=== PATIENT | female | born 1960 | race Caucasian/White ===

== ENCOUNTER → 2017-03-05 | Outpatient (CLI) | payer BC ==
--- NOTE | 2017-03-05 15:09 | RAD ---
DATE: 03/05/2017 EXAM: DIGITAL SCREEN BILAT W/CAD HISTORY: Screening study. COMPARISON: 03/04/2016 This study was interpreted with the benefit of Computerized Aided Detection (CAD). FINDINGS: Digital MLO and CC mammograms of both breasts were obtained. Comparison study is dated 03/04/2016. The breast parenchyma is composed of scattered fibroglandular densities which can obscure a lesion on mammography (breast density code B).. Benign-appearing calcifications are seen within both breasts. No spiculated mass is seen. No malignant appearing calcification or area of architectural distortion is noted. IMPRESSION: BI-RADS Category 1, negative. There is no mammographic evidence of malignancy. Routine yearly screening mammography is recommended for follow-up. BI-RADS CATEGORY: 1 NEGATIVE RECOMMENDED FOLLOW-UP: 12M 12 MONTH FOLLOW-UP PQRS compliance statement: Patient information was entered into a reminder system with a target due date 03/05/2018 for the next mammogram. Mammography is a sensitive method for finding small breast cancers, but it does not detect them all and is not a substitute for careful clinical examination. A negative mammogram does not negate a clinically suspicious finding and should not result in delay in biopsying a clinically suspicious abnormality. "Our facility is accredited by the [employer] Mammography [employer]."
== END | disposition home or self-care (01) ==
LOC: MAMMO 09:03
PROVIDERS: ATTEND Physician Assistant Medical
DX: Z12.31 Encounter for screening mammogram for malignant neoplasm of breast (principal)
CPT/HCPCS: G0202; 77067

== ENCOUNTER → 2018-03-06 | Outpatient (CLI) | payer BC ==
--- NOTE | 2018-03-06 14:03 | RAD ---
DATE: 03/06/2018 EXAM: MAMMO COCO SCREENING BILATERAL HISTORY: Routine screening COMPARISON: 03/05/2017 This study was interpreted with the benefit of Computerized Aided Detection (CAD). The breast parenchyma shows scattered fibroglandular densities. Breast parenchyma level B. FINDINGS: 2-D and 3-D tomosynthesis imaging was performed in CC and MLO projections. There is an asymmetric density in the upper inner left breast as seen on the cc view which is unchanged since older studies such as 09/08/2013. This is probably related to the history of previous left breast biopsy. There are unchanged small smooth nodules laterally in the right breast. No new or enlarging breast densities are seen. Several benign type calcifications are again noted. No suspicious microcalcifications have developed. IMPRESSION: Stable mammograms without evidence of malignancy. BI-RADS CATEGORY: 2 BENIGN FINDING(S) RECOMMENDED FOLLOW-UP: 12M 12 MONTH FOLLOW-UP PQRS compliance statement: Patient information was entered into a reminder system with a target due date for the next mammogram. Mammography is a sensitive method for finding small breast cancers, but it does not detect them all and is not a substitute for careful clinical examination. A negative mammogram does not negate a clinically suspicious finding and should not result in delay in biopsying a clinically suspicious abnormality. "Our facility is accredited by the [employer] Mammography [employer]."
== END | disposition home or self-care (01) ==
LOC: MAMMO 09:22
PROVIDERS: ATTEND Physician Assistant Medical
DX: Z12.31 Encounter for screening mammogram for malignant neoplasm of breast (principal)
CPT/HCPCS: 77063; 77067

== ENCOUNTER → 2018-12-02 | Outpatient (CLI) | payer BC ==
--- NOTE | 2018-12-02 14:38 | RAD ---
EXAM: Pelvic sonogram. HISTORY: Postmenopausal bleeding. TECHNIQUE: Transabdominal and transvaginal sonographic imaging of the pelvis was performed. COMPARISON: None. FINDINGS: The uterus measures 7.1 x 4.6 x 3.2 cm. The endometrial stripe measures 2.3 mm transvaginally. The ovaries are normal in size and demonstrate normal blood flow. There is a small uterine fibroid measuring 1.8 cm in maximum dimension. There is no pelvic free fluid. IMPRESSION: 1. Small uterine fibroid. 2. Endometrial stripe within normal limits for the postmenopausal status of patient. This measures 2.3 mm on transvaginal imaging. 3. Unremarkable ovaries. Electronically signed by: Heather Rush MD (12/02/2018 2:35 PM) [id number]
== END | disposition home or self-care (01) ==
LOC: US 12:43
PROVIDERS: ATTEND Registered Nurse
DX: D25.9 Leiomyoma of uterus, unspecified (principal)
CPT/HCPCS: 76830; 76856

== ENCOUNTER → 2019-03-10 | Outpatient (CLI) | payer BC ==
--- NOTE | 2019-03-10 09:07 | RAD ---
DATE: 03/10/2019 EXAM: MAMMO COCO SCREENING BILATERAL HISTORY: Routine screening COMPARISON: 03/06/2018 This study was interpreted with the benefit of Computerized Aided Detection (CAD). Breast Density: SCATTERED The breast parenchyma shows scattered fibroglandular densities. Breast parenchyma level B. FINDINGS: 2-D and 3-D tomosynthesis imaging was performed in CC and MLO projections. There is an unchanged asymmetric density medially in the left breast which may be related to a previous breast biopsy. There are stable small smooth nodules in the breasts, most numerous laterally on the right. No new or enlarging breast densities are seen. Several benign type calcifications are noted. No suspicious microcalcifications have developed. IMPRESSION: Stable mammograms without evidence of malignancy. BI-RADS CATEGORY: 2 BENIGN FINDING(S) RECOMMENDED FOLLOW-UP: 12M 12 MONTH FOLLOW-UP PQRS compliance statement: Patient information was entered into a reminder system with a target due date for the next mammogram. Mammography is a sensitive method for finding small breast cancers, but it does not detect them all and is not a substitute for careful clinical examination. A negative mammogram does not negate a clinically suspicious finding and should not result in delay in biopsying a clinically suspicious abnormality. "Our facility is accredited by the [employer] Mammography [employer]."
== END | disposition home or self-care (01) ==
LOC: MAMMO 08:01
PROVIDERS: ATTEND Physician Assistant Medical
DX: Z12.31 Encounter for screening mammogram for malignant neoplasm of breast (principal); N63.20 Unspecified lump in the left breast, unspecified quadrant; N63.10 Unspecified lump in the right breast, unspecified quadrant; N64.89 Other specified disorders of breast
CPT/HCPCS: 77063; 77067

== ENCOUNTER → 2020-03-13 | Outpatient (CLI) | payer BC ==
--- NOTE | 2020-03-15 12:55 | RAD ---
DATE: 03/13/2020 9:41 AM EXAM: MAMMO COCO SCREENING BILATERAL HISTORY: Screening COMPARISON: 6 03/10/2019, 03/06/2018 Bilateral CC and MLO views of the breasts were performed. Bilateral breast tomosynthesis was performed in CC and MLO projections. This study was interpreted with the benefit of Computerized Aided Detection (CAD). FINDINGS: Breast Density: FATTY The Breast Parenchyma is primarily fatty replaced. Breast parenchyma level density A. No suspicious masses, microcalcifications or architectural distortion is present to suggest malignancy in either breast. The visualized axillae are unremarkable. IMPRESSION: No mammographic evidence of malignancy. BI-RADS CATEGORY: 1 NEGATIVE RECOMMENDED FOLLOW-UP: 12M 12 MONTH FOLLOW-UP Annual screening mammography is recommended, unless clinically indicated sooner based on symptoms or change in physical exam. PQRS compliance statement: Patient information was entered into a reminder system with a target due date 03/14/2021 for the next mammogram. Mammography is a sensitive method for finding small breast cancers, but it does not detect them all and is not a substitute for careful clinical examination. A negative mammogram does not negate a clinically suspicious finding and should not result in delay in biopsying a clinically suspicious abnormality. "Our facility is accredited by the [employer] Mammography [employer]."
== END | disposition home or self-care (01) ==
LOC: MAMMO 08:41
PROVIDERS: ATTEND Physician Assistant Medical
DX: Z12.31 Encounter for screening mammogram for malignant neoplasm of breast (principal)
CPT/HCPCS: 77063; 77067

== ENCOUNTER → 2021-03-20 | Outpatient (CLI) | payer OTHER ==
--- NOTE | 2021-03-20 16:17 | RAD ---
EXAM: BILATERAL DIGITAL 3D SCREENING MAMMOGRAPHY. HISTORY: Routine mammographic screening. TECHNIQUE: Bilateral digital 3D and tomographic images were obtained in CC and MLO projections. Compu ter-aided detection was applied. COMPARISON: 03/13/2020, 03/10/2019. COMPOSITION: A. The breasts are almost entirely fatty. FINDINGS: Mild architectural distortion superiorly on the left is stable. There are no suspicious mas ses, microcalcifications or architectural distortion. The parenchymal pattern is stable. BI-RADS CATEGORY 2: Benign. RECOMMENDATION: 1. Routine screening mammography in one year. If mammography demonstrates dense breast tissue (heterogenously dense or extremely dense, category C or D), which could hide abnormalities, and if other risk factors for breast cancer have been identifi ed, supplemental screening tests that may be suggested by the ordering physician may be of benefit. D ense breast tissue, in and of itself, is a relatively common condition. Therefore, this information i s not provided to cause undue concern, but rather to raise awareness and to promote discussion with t he referring physician regarding the presence of other risk factors, in addition to dense breast tiss ue. The results of this mammography examination is provided to the patient and referring physician. T he patient should contact their referring physician if any questions or concerns exist regarding this report. PQRS compliance statement - Patient information was entered into a reminder system with a target due date for the next mammogram. "Our facility is accredited by the [employer] Mammography [employer]." Electronically signed by: Hank Chang MD (03/20/2021 4:15 PM) [id number]
== END ==
LOC: MAMMO 08:15
PROVIDERS: ATTEND Physician Assistant Medical
DX: Z12.31 Encounter for screening mammogram for malignant neoplasm of breast (principal)
CPT/HCPCS: 77063; 77067

== ENCOUNTER → 2021-10-05 | Outpatient (CLI) | payer OTHER ==
--- NOTE | 2021-10-05 08:44 | RAD ---
Study: XR LT WRIST 3VIEWS Indication: Pain and swelling. Fall. Comparison: None. Findings: Acute horizontally oriented fracture at the distal radius with propagates into the proximal aspect of the distal radial ulnar joint. No fracture extension seen into the radiocarpal joint. Mild volar ape x angulation. No significant displacement. No discrete fracture of the distal ulna or carpal bones. Within normal limits scapholunate interval. 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 N o advanced intercarpal arthrosis. 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 Edematous so ft tissues around the radius fracture. Impression: 1. Nondisplaced distal radius fracture with mild volar apex angulation. No acute fracture seen elsewh ere. 2. 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 Electronically signed by: ROSE PACHECO MD (10/05/2021 8:41 AM) [id number]
== END ==
LOC: RAD 08:11
PROVIDERS: ATTEND Physician Assistant
DX: S69.92XA Unspecified injury of left wrist, hand and finger(s), initial encounter (principal); S52.592A Other fractures of lower end of left radius, initial encounter for closed fracture; M19.032 Primary osteoarthritis, left wrist; W19.XXXA Unspecified fall, initial encounter; Y93.89 Activity, other specified; Y92.89 Other specified places as the place of occurrence of the external cause; Y99.8 Other external cause status
CPT/HCPCS: 73110

== ENCOUNTER → 2021-11-05 | Outpatient (CLI) | payer OTHER ==
--- NOTE | 2021-11-05 16:25 | RAD ---
Exam: XR LT WRIST 3VIEWS History: Follow-up left wrist fracture. Comparison: 10/05/2021. Findings: Decreased osseous mineralization. Redemonstrated transverse fracture left radial metaphysis. Increase d conspicuity of fracture lucency may suggest interval remodeling. No significant healing callus iden tified. Degenerative changes at the distal radial ulnar joint. Impression: 1. Nondisplaced transverse distal radius metaphysis fracture. No significant callus formation identi fied. Electronically signed by: Roberto Martin MD (11/05/2021 4:23 PM) [facility]
== END ==
LOC: RAD 15:58
PROVIDERS: ATTEND Physician Assistant
DX: S52.325D Nondisplaced transverse fracture of shaft of left radius, subsequent encounter for closed fracture with routine healing (principal); M19.042 Primary osteoarthritis, left hand; X58.XXXD Exposure to other specified factors, subsequent encounter
CPT/HCPCS: 73110

== ENCOUNTER → 2021-12-07 | Outpatient (CLI) | payer OTHER ==
--- NOTE | 2021-12-07 11:59 | RAD ---
3 views of the left wrist compared to similar exam dated September 042021 for fracture follow-up. FINDINGS: Healing fracture of the distal radius with no alignment abnormality. There is interval call us formation however this fracture remains incompletely healed. IMPRESSION: 1. Healing fracture of the distal radius. Electronically signed by: Tom Brock MD (12/07/2021 11:57 AM) [id number]
== END ==
LOC: RAD 08:24
PROVIDERS: ATTEND Physician Assistant
DX: S52.502A Unspecified fracture of the lower end of left radius, initial encounter for closed fracture (principal); X58.XXXA Exposure to other specified factors, initial encounter; Y93.89 Activity, other specified; Y92.89 Other specified places as the place of occurrence of the external cause; Y99.8 Other external cause status
CPT/HCPCS: 73110